=== PATIENT | female | born 1980 | race Caucasian/White ===

== ENCOUNTER → 2018-01-05 | Outpatient (CLI) | payer BC, OTHER ==
[~2018-01-05] MED LIST: ALBU90OI INH; CLIN150 PO; DOCU100 PO; FERR325; Fiber Tabs625 MG; HYDACE5325 PO; HYOS0.375T PO; IBUP800 PO; LAMO100 PO; MOXI400 PO; Milk Of Ma400 MG/5 M PO; Multiple Vitam1 EAC1 PO; ORTHO TRICYCLIN; OXYACE5T PO; PRED20 PO; Phentermine HCl30 MG; RXHYD5325 PO; Verotin-Gr Cap1 EACH
[2018-01-05 08:21] LABS: BASOPHILS ABSOLUTE AUTO 0.03 K/mm3 (0.00-0.23); BASOPHILS PERCENT AUTO 0 % (0-2); EOSINOPHILS ABSOLUTE AUTO 0.22 K/mm3 (0.00-0.68); EOSINOPHILS PERCENT AUTO 3 % (0-6); Hematocrit 39.3 % (33.0-51.0); Hemoglobin 13.4 g/dL (11.5-16.0); IMMATURE GRAN ABSOLUTE AUTO 0.04 K/mm3 (0.00-0.10); IMMATURE GRAN PERCENT AUTO 1 % (0-1); LYMPHOCYTES ABSOLUTE AUTO 2.06 K/mm3 (0.84-5.20); LYMPHOCYTES PERCENT AUTO 30 % (21-46); MONOCYTES ABSOLUTE AUTO 0.51 K/mm3 (0.16-1.47); MONOCYTES PERCENT AUTO 7 % (4-13); Mean Corpuscular HGB 29.9 pg (26.0-34.0); Mean Corpuscular HGB Conc 34.1 g/dL (31.5-36.5); Mean Corpuscular Volume 88 fL (80-100); Mean Platelet Volume 8.2 fL (9.1-12.4); NEUTROPHILS ABSOLUTE AUTO 3.99 K/mm3 (1.96-9.15); NEUTROPHILS PERCENT AUTO 58 % (41-73); Platelet Count 344 K/mm3 (150-400); RDW Coefficient Variation 12.2 % (11.7-14.2); RDW Standard Deviation 39.2 fL (35.1-46.3); Red Blood Cell Count 4.48 M/mm3 (3.80-5.20); White Blood Cell Count 6.85 K/mm3 (4.00-11.30)
== END ==
LOC: LAB SHORT 08:18 → LAB EV 08:18
PROVIDERS: Physician Assistant
DX: R50.9 Fever, unspecified (principal); R53.83 Other fatigue
CPT/HCPCS: 84443; 85025

== ENCOUNTER 2019-10-04 12:16 | Day surgery (SDC) | payer OTHER ==
[~2019-10-04] VITALS: Ht 175.3 cm; Wt 84.2 kg
[2019-10-04] MEDS ORDERED: SUMA25 (12:46)
[2019-10-04] MEDS ORDERED: PROM25 (12:46)
[2019-10-04] MEDS ORDERED: TOPI50 (12:46)
[2019-10-04] MEDS ORDERED: METHYLPHENIDATE10 M3 (12:47)
[2019-10-04] MEDS ORDERED: ZYRTEC10 M1 (12:47)
[2019-10-17] MEDS ORDERED: ZYRTEC10 M2 PO (20:07)
[2019-10-17] MEDS ORDERED: Percocet 5-3251 EACH PO (21:50)
== END 2019-10-04 14:23 | disposition home or self-care (01) ==
LOC: ORSCSDS 12:16
PROVIDERS: Internal Medicine Gastroenterology
PROC: 0DJD8ZZ Inspection of Lower Intestinal Tract, Via Natural or Artificial Opening Endoscopic (ICD-10-PCS; principal; 2019-10-04 13:30)
DX: Z12.11 Encounter for screening for malignant neoplasm of colon (principal); Z86.010 Personal history of colon polyps; Z80.0 Family history of malignant neoplasm of digestive organs; Z79.899 Other long term (current) drug therapy
CPT/HCPCS: J2704; J7120

== ENCOUNTER → 2021-03-30 | Outpatient (CLI) | payer OTHER ==
[~2021-03-30] MED LIST changes: +METHYLPHENIDATE10 M3; +PROM25; +Percocet 5-3251 EACH PO; +SUMA25; +TOPI50; +ZYRTEC10 M1; +ZYRTEC10 M2 PO
[2021-03-30 14:08] LABS: Adenovirus Not Detected (NOT DETECT); Bordetella pertussis Not Detected (NOT DETECT); Chlamydophila pneumoniae Not Detected (NOT DETECT); Coronavirus 229E Not Detected (NOT DETECT); Coronavirus HKU1 Not Detected (NOT DETECT); Coronavirus NL63 Not Detected (NOT DETECT); Coronavirus OC43 Not Detected (NOT DETECT); Human Metapneumovirus Not Detected (NOT DETECT); Human Rhinovirus/Enterovirus Not Detected (NOT DETECT); Influenza A/2009-H1 Not Detected (NOT DETECT); Influenza A/H1 Not Detected (NOT DETECT); Influenza A/H3 Not Detected (NOT DETECT); Influenza B Not Detected (NOT DETECT); Mycoplasma pneumoniae Not Detected (NOT DETECT); Parainfluenza Virus 1 Not Detected (NOT DETECT); Parainfluenza Virus 2 Not Detected (NOT DETECT); Parainfluenza Virus 3 Not Detected (NOT DETECT); Parainfluenza Virus 4 Not Detected (NOT DETECT); Respiratory Syncytial Virus Not Detected (NOT DETECT); SARS-Cov-2 (COVID-19), BioFire Not Detected (NOT DETECT)
== END ==
LOC: LAB SHORT 12:24
PROVIDERS: Nurse Practitioner Family
DX: J06.9 Acute upper respiratory infection, unspecified (principal)
CPT/HCPCS: 0202U

== ENCOUNTER 2024-04-11 11:26 | Emergency (ER) | payer BC, OTHER ==
[~2024-04-11] VITALS: Ht 175.3 cm; Wt 79.4 kg
[2024-04-11] MEDS ORDERED: OxyCODONE 5 mg/Acetamin 325 mg TABLET PO ONE (13:30)
[2024-04-11] MEDS ORDERED: RX Prepack 6 Tabs Oxycodone 5mg UD ONE (15:50)
[2024-04-11 16:00] VITALS: BP 120/99
== END 2024-04-11 16:07 | disposition home or self-care (01) ==
LOC: ER 11:26
DX: S63.592A Other specified sprain of left wrist, initial encounter (principal); I10 Essential (primary) hypertension; F98.8 Other specified behavioral and emotional disorders with onset usually occurring in childhood and adolescence; Z88.0 Allergy status to penicillin; Z88.1 Allergy status to other antibiotic agents; Z79.899 Other long term (current) drug therapy; Z79.818 Long term (current) use of other agents affecting estrogen receptors and estrogen levels; Z88.9 Allergy status to unspecified drugs, medicaments and biological substances; Z79.891 Long term (current) use of opiate analgesic; W18.30XA Fall on same level, unspecified, initial encounter
CPT/HCPCS: 73110; A9270